=== PATIENT | male | born 1975 | race Caucasian/White ===

== ENCOUNTER 2023-06-07 14:57 | Emergency (ER) | payer OTHER ==
[~2023-06-07] VITALS: Ht 177.8 cm; Wt 80.7 kg
[2023-06-07 15:16] VITALS: BP 135/73
== END 2023-06-07 16:08 | disposition home or self-care (01) ==
LOC: ER 14:57
DX: S61.411A Laceration without foreign body of right hand, initial encounter (principal); W45.0XXA Nail entering through skin, initial encounter
CPT/HCPCS: 12002; 90471; 90714; 90715; 99282-25